=== PATIENT | male | born 1945 | race Caucasian/White ===

== ENCOUNTER 2020-10-20 19:47 | Inpatient (IN) ==
[2020-10-20] MEDS ORDERED: Ondansetron 4 MG/2 ML VIAL IVP ONE (20:54)
[2020-10-20] MEDS ORDERED: Morphine Sulfate 2 MG/ML SYRINGE IVP ONE (20:54)
[2020-10-20] MEDS ORDERED: 0.9 % Sodium Chloride 1,000 ML IVC SCH (21:00)
[2020-10-20 21:04] LABS: Basophils % 0.1 %; Eosinophils % 0.1 %; Hemoglobin 8.4 g/dL (12.9-16.9); Immature Granulocytes % 0.9 % (0-4); Lymphocytes % 4.9 %; Mean Corpuscular HGB Conc 31.1 g/dL (31.6-35.5); Mean Corpuscular Hemoglobin 31.1 pg (28.0-33.3); Mean Platelet Volume 10.5 fL (9.4-12.4); Monocytes # 0.6 K/mcL (0.0-1.3); Neutrophils # 18.8 K/mcL (1.6-8.9); Platelet Count 350 K/mcL (140-400); Red Cell Distribution Width 14.4 % (11.5-14.5); White Blood Count 20.7 K/mcL (4.3-11.1)
[2020-10-20 21:26] LABS: Alanine Aminotransferase 15 Units/L (7-52); Albumin 3.5 g/dL (3.5-5.7); Albumin/Globulin Ratio 0.9 (1.1-2.2); Alkaline Phosphatase 44 Units/L (34-104); Aspartate Amino Transferase 16 Units/L (13-39); BUN/Creatinine Ratio 38 (6-26); Bilirubin,Total 1.1 mg/dL (0.3-1.0); Blood Urea Nitrogen 24 mg/dL (8-23); Calcium 9.6 mg/dL (8.6-10.3); Carbon Dioxide 25 mEq/L (23-29); Chloride 107 mEq/L (98-107); Creatine Kinase 36 Units/L (30-223); Glucose 145 mg/dL (70-105); Osmolality,Calculated 301 (280-300); Potassium 3.9 mEq/L (3.5-5.1); Sodium 142 mEq/L (136-145); Total Protein 7.5 g/dL (6.4-8.9); Troponin I 0.03 ng/mL (< 0.04); eGFR For African Americans > 60 (> 60); eGFR For Non-African Americans > 60 (> 60)
[2020-10-20 21:28] LABS: INR 1.7; Prothrombin Time 19.6 Seconds (9.4-12.1)
[2020-10-20 21:30] LABS: Activated Partial Thrombo Time 27.4 Seconds (26.0-36.0)
[2020-10-20 22:32] LABS: Bilirubin,Urine Negative (Negative); Blood,Urine Negative (Negative); Clarity,Urine Clear (Clear); Color,Urine Yellow (Yellow); Glucose,Urine (UA) Normal (Normal); Ketones,Urine Negative (Negative); Leukocyte Esterase,Urine Negative (Negative); Mucus,Urine Few per lpf (None-Few); Nitrite,Urine Negative (Negative); Protein,Urine 70 mg/dL (Neg-Trace); RBC,Urine 0-3 per hpf (0-3); Specific Gravity,Urine 1.025 (1.010-1.025); Squamous Epithelial Cell,Urine Few per hpf (None-Few); Urobilinogen,Urine Normal (Normal); WBC,Urine 0-3 per hpf (0-3)
[2020-10-20] MEDS ORDERED: Perflutren Lipid Microsphere 1.3 ML in 0.9 % Sodium Chloride 8.7 ML IVP PRN (23:15)
[2020-10-21] MEDS ORDERED: *HR* HYDROmorphone (PF) 1 MG/ML SYRINGE IVP ONE ×2 (00:04→00:15)
[2020-10-21] MEDS ORDERED: 0.9 % Sodium Chloride 1,000 ML IVC SCH (00:15)
[2020-10-21] MEDS ORDERED: D5% in Water 1,000 ML IVC PRN (00:19)
[2020-10-21] MEDS ORDERED: Dextrose Gel 15 GM/37.5 ML TUBE PO PRN ×2 (00:19)
[2020-10-21] MEDS ORDERED: *HR* Dextrose 50 % in Water (Vial) 50 ML VIAL IVP PRN (00:19)
[2020-10-21] MEDS ORDERED: Naloxone 0.4 MG/ML INJ IVP PRN (00:20)
[2020-10-21] MEDS ORDERED: Acetaminophen 325 MG TABLET PO PRN (00:20)
[2020-10-21] MEDS ORDERED: Ondansetron 4 MG/2 ML VIAL IVP PRN (00:20)
[2020-10-21] MEDS ORDERED: tiZANidine 4 MG TABLET PO PRN (01:06)
[2020-10-21 02:02] LABS: Hematocrit 25.5 % (37.5-50.1); Mean Corpuscular HGB Conc 31.4 g/dL (31.6-35.5); Mean Corpuscular Hemoglobin 31.6 pg (28.0-33.3); Mean Corpuscular Volume 100.8 fL (83.0-100.0); Mean Platelet Volume 10.4 fL (9.4-12.4); Platelet Count 301 K/mcL (140-400); Red Blood Count 2.53 M/mcL (4.19-5.50); Red Cell Distribution Width 14.5 % (11.5-14.5)
[2020-10-21 02:27] LABS: Chol/HDL Ratio 2.4 (0-4.9)
[2020-10-21 02:28] LABS: BUN/Creatinine Ratio 39 (6-26); Blood Urea Nitrogen 24 mg/dL (8-23); Calcium 9.1 mg/dL (8.6-10.3); Carbon Dioxide 26 mEq/L (23-29); Chloride 108 mEq/L (98-107); Glucose 152 mg/dL (70-105); Magnesium 1.6 mg/dL (1.6-2.6); Osmolality,Calculated 297 (280-300); Potassium 4.1 mEq/L (3.5-5.1); Sodium 140 mEq/L (136-145); Troponin I 0.03 ng/mL (< 0.04); eGFR For African Americans > 60 (> 60); eGFR For Non-African Americans > 60 (> 60)
[2020-10-21 02:50] LABS: Folate 19.6 ng/mL (3.0-16.0)
[2020-10-21] MEDS: *HR* HYDROmorphone 2 MG TABLET PO PRN ×3 (04:43→14:47)
[2020-10-21] MEDS ORDERED: Insulin LISPRO 300 UNITS/3 ML VIAL SUBQ SCH ×2 (06:00→21:00)
[2020-10-21] MEDS: Insulin LISPRO 300 UNITS/3 ML VIAL SUBQ SCH ×2 (12:27→17:23)
[2020-10-21] MEDS: predniSONE 20 MG TABLET PO SCH (14:47)
[2020-10-21] MEDS: lisinopriL 5 MG TABLET PO SCH (20:11)
[2020-10-21] MEDS ORDERED: TOFACITINIB CITRATE 10 MG PO SCH (21:00)
[2020-10-21] MEDS ORDERED: TOFACITINIB CITRATE 11 MG PO SCH (22:15)
[2020-10-21] MEDS: TOFACITINIB CITRATE 11 MG PO SCH (22:22)
[2020-10-22 01:57] LABS: Hematocrit 23.4 % (37.5-50.1); Hemoglobin 7.4 g/dL (12.9-16.9); Mean Corpuscular HGB Conc 31.6 g/dL (31.6-35.5); Mean Corpuscular Hemoglobin 31.9 pg (28.0-33.3); Mean Corpuscular Volume 100.9 fL (83.0-100.0); Mean Platelet Volume 10.6 fL (9.4-12.4); Platelet Count 238 K/mcL (140-400); Red Blood Count 2.32 M/mcL (4.19-5.50); Red Cell Distribution Width 14.5 % (11.5-14.5); White Blood Count 14.6 K/mcL (4.3-11.1)
[2020-10-22 02:23] LABS: BUN/Creatinine Ratio 30 (6-26); Blood Urea Nitrogen 18 mg/dL (8-23); Calcium 9.4 mg/dL (8.6-10.3); Carbon Dioxide 25 mEq/L (23-29); Chloride 104 mEq/L (98-107); Glucose 154 mg/dL (70-105); Osmolality,Calculated 289 (280-300); Potassium 4.2 mEq/L (3.5-5.1); Sodium 137 mEq/L (136-145); eGFR For African Americans > 60 (> 60); eGFR For Non-African Americans > 60 (> 60)
[2020-10-22] MEDS: Hydrocortisone Sodium Succ 100 MG/2 ML VIAL IVP SCH ×3 (05:26→16:23)
[2020-10-22] MEDS: Insulin LISPRO 300 UNITS/3 ML VIAL SUBQ SCH ×4 (07:32→21:11)
[2020-10-22] MEDS: TOFACITINIB CITRATE 11 MG PO SCH (07:43)
[2020-10-22] MEDS: predniSONE 20 MG TABLET PO SCH (07:43)
[2020-10-22] MEDS: lisinopriL 5 MG TABLET PO SCH (07:43)
[2020-10-22] MEDS ORDERED: Cyanocobalamin (B-12) 1,000 MCG TABLET PO SCH (09:00)
[2020-10-22] MEDS ORDERED: Cholecalciferol (D-3) 1,000 UNIT (25MCG) TABLET PO SCH (09:00)
[2020-10-22] MEDS ORDERED: Iron Sucrose Complex 200 MG in 0.9 % Sodium Chloride 100 ML IVPB ONE (12:00)
[2020-10-22 13:03] LABS: Bilirubin,Urine Negative (Negative); Blood,Urine Trace (Negative); Clarity,Urine Clear (Clear); Color,Urine Light-Yellow (Yellow); Glucose,Urine (UA) Normal (Normal); Ketones,Urine Negative (Negative); Leukocyte Esterase,Urine Negative (Negative); Mucus,Urine Few per lpf (None-Few); Nitrite,Urine Negative (Negative); Protein,Urine Trace mg/dL (Neg-Trace); RBC,Urine 0-3 per hpf (0-3); Specific Gravity,Urine 1.018 (1.010-1.025); Urobilinogen,Urine Normal (Normal); WBC,Urine 0-3 per hpf (0-3)
[2020-10-22] MEDS ORDERED: Lidocaine HCL 4 ML Topical Solution (Laryng-O-Jet Kit Sterile Pak) TP ONE (14:50)
[2020-10-22] MEDS ORDERED: *HR* FentaNYL (PF) 100 MCG/2 ML VIAL ONE (14:53)
[2020-10-22] MEDS ORDERED: *HR* Etomidate 40 MG/20 ML VIAL IVP ONE (14:53)
[2020-10-22] MEDS ORDERED: *HR* Rocuronium Bromide 50 MG/5 ML VIAL ONE (14:55)
[2020-10-22] MEDS ORDERED: Lidocaine -MPF 2% 2 ML VIAL ONE (14:55)
[2020-10-22] MEDS ORDERED: Ondansetron 4 MG/2 ML VIAL ONE (14:55)
[2020-10-22] MEDS ORDERED: *HR* Succinylcholine 200 MG/10 ML VIAL IVP ONE (14:55)
[2020-10-22] MEDS ORDERED: Albumin Human 5% 0 GM/0 ML IV.SOLN ONE (15:01)
[2020-10-22] MEDS ORDERED: *HR* Vasopressin 20 UNIT/ML VIAL ONE (15:01)
[2020-10-22] MEDS ORDERED: *HR* HYDROmorphone PF 0.5 MG/0.5 ML SYRINGE IVP PRN (16:21)
[2020-10-22] MEDS ORDERED: *HR* HYDROMORPHONE 2 MG/ML VIAL ONE ×2 (17:22→17:49)
[2020-10-22] MEDS ORDERED: *HR* Dextrose 50 % in Water (Vial) 50 ML VIAL IVP PRN (18:48)
[2020-10-22] MEDS ORDERED: D5% in Water 1,000 ML IVC PRN (18:48)
[2020-10-22] MEDS ORDERED: Naloxone 0.4 MG/ML INJ IVP PRN (18:48)
[2020-10-22] MEDS ORDERED: Acetaminophen 325 MG TABLET PO PRN (18:48)
[2020-10-22] MEDS ORDERED: Perflutren Lipid Microsphere 1.3 ML in 0.9 % Sodium Chloride 8.7 ML IVP PRN (18:48)
[2020-10-22] MEDS ORDERED: Dextrose Gel 15 GM/37.5 ML TUBE PO PRN ×2 (18:48)
[2020-10-22] MEDS ORDERED: Ondansetron 4 MG/2 ML VIAL IVP PRN (18:48)
[2020-10-23] MEDS: Hydrocortisone Sodium Succ 100 MG/2 ML VIAL IVP SCH ×5 (00:03→21:46)
[2020-10-23] MEDS: CeFAZolin 2 GM/120 ML BAG IVPB SCH ×2 (00:04→07:24)
[2020-10-23] MEDS: *HR* HYDROmorphone 2 MG TABLET PO PRN ×4 (01:48→21:45)
[2020-10-23 05:45] LABS: BUN/Creatinine Ratio 28 (6-26); Blood Urea Nitrogen 19 mg/dL (8-23); Calcium 8.7 mg/dL (8.6-10.3); Carbon Dioxide 22 mEq/L (23-29); Chloride 105 mEq/L (98-107); Glucose 147 mg/dL (70-105); Osmolality,Calculated 287 (280-300); Potassium 4.4 mEq/L (3.5-5.1); Sodium 136 mEq/L (136-145); eGFR For African Americans > 60 (> 60); eGFR For Non-African Americans > 60 (> 60)
[2020-10-23 06:34] LABS: Hematocrit 22.1 % (37.5-50.1); Hemoglobin 6.8 g/dL (12.9-16.9); Mean Corpuscular HGB Conc 30.8 g/dL (31.6-35.5); Mean Corpuscular Hemoglobin 31.3 pg (28.0-33.3); Mean Corpuscular Volume 101.8 fL (83.0-100.0); Platelet Count 194 K/mcL (140-400); Red Blood Count 2.17 M/mcL (4.19-5.50); Red Cell Distribution Width 14.1 % (11.5-14.5); White Blood Count 10.3 K/mcL (4.3-11.1)
[2020-10-23] MEDS: Cholecalciferol (D-3) 1,000 UNIT (25MCG) TABLET PO SCH (07:23)
[2020-10-23] MEDS: predniSONE 20 MG TABLET PO SCH (07:23)
[2020-10-23] MEDS: lisinopriL 5 MG TABLET PO SCH (07:23)
[2020-10-23] MEDS: Aspirin Enteric Coated 325 MG Tablet PO SCH (07:23)
[2020-10-23] MEDS: Cyanocobalamin (B-12) 1,000 MCG TABLET PO SCH (07:24)
[2020-10-23] MEDS: Insulin LISPRO 300 UNITS/3 ML VIAL SUBQ SCH ×4 (07:47→21:45)
[2020-10-23 09:01] LABS: Hematocrit 24.8 % (37.5-50.1); Hemoglobin 7.7 g/dL (12.9-16.9)
[2020-10-23] MEDS: TOFACITINIB CITRATE 11 MG PO SCH (11:47)
[2020-10-23] MEDS ORDERED: Iron Sucrose Complex 200 MG in 0.9 % Sodium Chloride 100 ML IVPB ONE (12:52)
[2020-10-24 02:56] LABS: Basophils % 0.1 %; Eosinophils % 0.2 %; Hemoglobin 7.4 g/dL (12.9-16.9); Immature Granulocytes % 2.2 % (0-4); Lymphocytes # 0.5 K/mcL (0.6-4.6); Lymphocytes % 4.7 %; Mean Corpuscular HGB Conc 30.8 g/dL (31.6-35.5); Mean Corpuscular Hemoglobin 31.1 pg (28.0-33.3); Mean Corpuscular Volume 100.8 fL (83.0-100.0); Mean Platelet Volume 10.9 fL (9.4-12.4); Monocytes # 0.6 K/mcL (0.0-1.3); Monocytes % 6.2 %; Nucleated Red Blood Cells 0.2 /100 WBC (0); Platelet Count 195 K/mcL (140-400); Red Blood Count 2.38 M/mcL (4.19-5.50); Segmented Neutrophils % 86.6 %; White Blood Count 10.4 K/mcL (4.3-11.1)
[2020-10-24 03:15] LABS: BUN/Creatinine Ratio 32 (6-26); Blood Urea Nitrogen 22 mg/dL (8-23); Carbon Dioxide 27 mEq/L (23-29); Chloride 105 mEq/L (98-107); Glucose 190 mg/dL (70-105); Osmolality,Calculated 292 (280-300); Potassium 4.2 mEq/L (3.5-5.1); Sodium 137 mEq/L (136-145); eGFR For African Americans > 60 (> 60); eGFR For Non-African Americans > 60 (> 60)
[2020-10-24] MEDS: Hydrocortisone Sodium Succ 100 MG/2 ML VIAL IVP SCH ×4 (05:27→20:23)
[2020-10-24] MEDS: Insulin LISPRO 300 UNITS/3 ML VIAL SUBQ SCH ×4 (09:29→20:24)
[2020-10-24] MEDS: Cholecalciferol (D-3) 1,000 UNIT (25MCG) TABLET PO SCH (09:33)
[2020-10-24] MEDS: Cyanocobalamin (B-12) 1,000 MCG TABLET PO SCH (09:34)
[2020-10-24] MEDS: lisinopriL 5 MG TABLET PO SCH (09:34)
[2020-10-24] MEDS: predniSONE 20 MG TABLET PO SCH (09:34)
[2020-10-24] MEDS: Aspirin Enteric Coated 325 MG Tablet PO SCH (09:34)
[2020-10-24] MEDS: TOFACITINIB CITRATE 11 MG PO SCH (09:35)
[2020-10-24] MEDS: *HR* HYDROmorphone 2 MG TABLET PO PRN ×2 (11:11→20:25)
[2020-10-24] MEDS: tiZANidine 4 MG TABLET PO PRN (20:25)
[2020-10-25 06:13] LABS: Hematocrit 23.5 % (37.5-50.1); Hemoglobin 7.1 g/dL (12.9-16.9)
[2020-10-25] MEDS: Hydrocortisone Sodium Succ 100 MG/2 ML VIAL IVP SCH ×3 (06:21→19:50)
[2020-10-25] MEDS: *HR* HYDROmorphone 2 MG TABLET PO PRN (06:22)
[2020-10-25] MEDS: Insulin LISPRO 300 UNITS/3 ML VIAL SUBQ SCH ×4 (08:55→19:50)
[2020-10-25] MEDS: Cyanocobalamin (B-12) 1,000 MCG TABLET PO SCH (08:59)
[2020-10-25] MEDS: Aspirin Enteric Coated 325 MG Tablet PO SCH (08:59)
[2020-10-25] MEDS: predniSONE 20 MG TABLET PO SCH (08:59)
[2020-10-25] MEDS: Cholecalciferol (D-3) 1,000 UNIT (25MCG) TABLET PO SCH (09:00)
[2020-10-25] MEDS: TOFACITINIB CITRATE 11 MG PO SCH (09:00)
[2020-10-25] MEDS: lisinopriL 5 MG TABLET PO SCH (09:00)
[2020-10-25 13:07] LABS: Hematocrit 23.7 % (37.5-50.1); Hemoglobin 7.8 g/dL (12.9-16.9)
[2020-10-25] MEDS: polyethylene glycoL 3350 17 GM POWD.PACK PO SCH (15:08)
[2020-10-26] MEDS: tiZANidine 4 MG TABLET PO PRN ×2 (05:55→20:59)
[2020-10-26] MEDS: Aspirin Enteric Coated 325 MG Tablet PO SCH (09:35)
[2020-10-26] MEDS: Cyanocobalamin (B-12) 1,000 MCG TABLET PO SCH (09:35)
[2020-10-26] MEDS: polyethylene glycoL 3350 17 GM POWD.PACK PO SCH (09:35)
[2020-10-26] MEDS: Cholecalciferol (D-3) 1,000 UNIT (25MCG) TABLET PO SCH (09:35)
[2020-10-26] MEDS: lisinopriL 5 MG TABLET PO SCH (09:35)
[2020-10-26] MEDS: predniSONE 20 MG TABLET PO SCH (09:35)
[2020-10-26] MEDS: Hydrocortisone Sodium Succ 100 MG/2 ML VIAL IVP SCH ×2 (09:35→20:55)
[2020-10-26] MEDS: Insulin LISPRO 300 UNITS/3 ML VIAL SUBQ SCH ×4 (10:24→20:44)
[2020-10-26] MEDS: TOFACITINIB CITRATE 11 MG PO SCH (10:25)
[2020-10-27] MEDS: Cholecalciferol (D-3) 1,000 UNIT (25MCG) TABLET PO SCH (09:11)
[2020-10-27] MEDS: Aspirin Enteric Coated 325 MG Tablet PO SCH (09:11)
[2020-10-27] MEDS: Cyanocobalamin (B-12) 1,000 MCG TABLET PO SCH (09:11)
[2020-10-27] MEDS: lisinopriL 5 MG TABLET PO SCH (09:11)
[2020-10-27] MEDS: predniSONE 20 MG TABLET PO SCH (09:11)
[2020-10-27] MEDS: Insulin LISPRO 300 UNITS/3 ML VIAL SUBQ SCH ×2 (09:30→12:16)
[2020-10-27] MEDS: TOFACITINIB CITRATE 11 MG PO SCH (09:30)
[2020-10-27] MEDS ORDERED: Milk and Molasses Enema 200 ML RC ONE (11:00)
[2020-10-27 11:17] VITALS: BP 146/78; PULSE 73; TEMP 98; O2SAT 96
== END 2020-10-27 18:06 | DRG 481 ==
LOC: 3NENU 19:47 → EMEROOARM 19:47 → SUATTDRO 10-21 00:20 → 3NENU 10-21 00:50
PROVIDERS: ADMIT Student in an Organized Health Care Education/Training Program; ATTEND Internal Medicine